=== PATIENT | male | born 1955 | race Caucasian/White ===

== ENCOUNTER 2025-06-04 08:45 | Day surgery (SDC) | payer OTHER, SELFPAY ==
--- NOTE | 2025-06-01 06:10 | EKG_ITS ---
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
[2025-06-01 11:03] VITALS: BMI 24.5
[2025-06-01 12:26] LABS: Collection Type, Urine Clean Catch; Squamous Epithelial Cell,Urine 0 /hpf (0-5)
[2025-06-01 12:38] LABS: Basophils # (Auto) 0.0 Thou/mm3 (0.0-0.2); Basophils % (Auto) 1 % (0-2.5); Eosinophils # (Auto) 0.1 Thou/mm3 (0.0-0.5); Eosinophils % (Auto) 1 % (0-10); Hematocrit 37.6 % (41.0-53.0); Hemoglobin 12.8 g/dL (13.5-16.0); Immature Granulocytes Auto 0.02 Thou/mm3 (0.00-0.00); Lymphocytes # (Auto) 2.3 Thou/mm3 (1.0-4.8); Lymphocytes % (Auto) 31 % (10-50); Mean Corpuscular HGB Conc 34.0 g/dl (31.0-37.0); Mean Corpuscular Hemoglobin 29.9 pg (25.0-35.0); Mean Corpuscular Volume 88 fL (80-100); Monocytes # (Auto) 0.9 Thou/mm3 (0.0-0.8); Monocytes % (Auto) 13 % (0-12); Neutrophils # (Auto) 3.9 Thou/mm3 (1.8-7.7); Neutrophils % (Auto) 54 % (37-80); Nucleated Red Blood Cell # 0.00 Thou/mm3 (0.00-0.00); Nucleated Red Blood Cell % 0 /100 WBC (0); Platelet Count 302 Thou/mm3 (140-440); RDW Standard Deviation 40.9 fL (35.1-43.9); Red Blood Count 4.28 Miln/mm3 (4.50-5.90); White Blood Count 7.2 Thou/mm3 (3.8-10.6)
[2025-06-01 12:45] LABS: Partial Thromboplastin Time 28.5 Seconds (22.0-36.0)
[2025-06-01 12:49] LABS: Alanine Aminotransferase 29 U/L (10-49); Albumin, Serum 4.8 gm/dL (3.4-4.8); Albumin/Globulin Ratio 1.8 (1.2-2.2); Alkaline Phosphatase 79 U/L (46-116); Anion Gap 7 (7-16); Aspartate Amino Transferase 29 U/L (0-34); BUN/Creatinine Ratio 16 Ratio (12-20); Bilirubin,Total 0.7 mg/dL (0.3-1.2); Blood Urea Nitrogen 14 mg/dL (9-23); Calcium 10.0 mg/dL (8.3-10.6); Calcium (Corrected) 10.0 mg/dL (8.5-10.1); Carbon Dioxide 33.3 mMol/L (20.0-31.0); Chloride 102 mMol/L (98-107); Creatinine (Component) 0.9 mg/dL (0.6-1.3); Estimated Creatinine Clearance 81.3 mL/min (>60); Globulin 2.6 gm/dL (2.3-3.5); Glucose 99 mg/dL (74-106); Osmolality,Calculated 283 (275-295); Potassium 4.0 mMol/L (3.4-5.1); Sodium 142 mMol/L (136-145); Total Protein 7.4 gm/dL (5.7-8.2); eGFR > 60 See Note
[2025-06-01 13:32] LABS: Bilirubin,Urine Negative (Negative); Blood,Urine Trace (Negative); Clarity,Urine Clear (Clear/Hazy); Color,Urine Colorless (Lt Yel-Yel); Glucose, Urine Negative (Negative); Ketones,Urine Negative (Negative); Leukocyte Esterase,Urine Negative (Negative); Nitrite,Urine Negative (Negative); PH,Urine 7.0 (5.0-7.0); Protein,Urine Negative (Neg - Trace); RBC,Urine 1 /hpf (0-3); Specific Gravity,Urine 1.008 (1.001-1.035); Urobilinogen,Urine Negative mg/dL (0.0-1.0); WBC,Urine 1 /hpf (0-5)
[2025-06-04] VITALS (7 sets, daily range): BP systolic 131–142; BP diastolic 69–77; PULSE 55–92; RESP 15–19; TEMP 36.2–36.4; O2SAT 97–100
[2025-06-04] MEDS: RINGERS LACTATED 1000 ML 1,000 ML 60 ML IV (09:35)
--- NOTE | 2025-06-04 11:05 | SUR.PREOP ---
Patient expressed gratitude for prayer before their procedure.
--- NOTE | 2025-06-04 14:55 | SUR.PHASEI ---
pt received from OR in recovery bay 8. pt asleep but responds to voice, breathing unlabored on oxymask 6l. v/s stable. pt dressing to abd cdi. report received from Dr. Buckley and Kaylie MARTINEZ.
--- NOTE | 2025-06-04 14:55 | PD.SUROPNT ---
Date of Procedure 06/04/25 Pre Op Diagnosis Incarcerated right inguinal hernia Post Op Diagnosis Same with lipoma of the cord Procedure Repair of incarcerated inguinal hernia on the right side with excision of lipoma of the cord on 06/04/2025 Findings There is a large incarcerated right inguinal hernia there is a significant amount of scar tissue around the hernia sac. There is a lipoma of the cord. After general anesthesia was given was able to reduce the hernia. There was some inflammation around the hernia sac. Procedure Description Patient was examined in the preop area. Site and site were marked. Procedure was discussed with the patient in detail. The risk benefits alternatives were discussed with the patient and informed consent was obtained. The risks include bleeding infection recurrence of the hernia testicular atrophy and anesthesia related risks. The patient was brought to the operating room and placed on the operating table in supine position. General anesthesia was administered in a satisfactory manner. IV antibiotics were given to the patient. Local anesthesia 0.25% Marcaine was used as an adjunct. Curvilinear oblique incision is made in the right groin. This was deepened through the layers of skin subcutaneous tissue and Louis's fascia. The superficial inferior epigastric veins were ligated and divided. Hemostasis was achieved. The hernia protrusion is quite large and extending out to from the external ring. External oblique aponeurosis was cleared and the external ring was defined. The shelving edge of the inguinal ligament was defined externally. A longitudinal incision was made in the external oblique aponeurosis. The inguinal canal was opened. The ilioinguinal nerve was protected. Upper and lower flaps of the external oblique aponeurosis were dissected away from the hernia sac. This was retracted with a self-retaining retractor. The cremaster muscle was incised and the hernia sac was identified. Hernia sac was gently dissected circumferentially at the neck. The spermatic vessels were identified and they were protected. After the sac was from the cord structures it was examined and the sliding nature of the hernia sac was found. The peritoneum was closed with 3-0 Vicryl pursestring suture and the hernia was reduced en elodia. There was tight hernia ring. Large lipoma of the spermatic cord was noted to be extending from the internal ring and this was dissected from the cord structures and was removed after suture ligating the neck. This was sent off as specimen. The posterior wall of the inguinal canal was then examined. The conjoined tendon was defined. The posterior wall was repaired with interrupted 0 Ethibond interrupted sutures. This was approximating the the shelving edge of the inguinal ligament with the conjoined tendon and fascia transversalis. The first suture is passing through the periosteum of the pubic tubercle. The second suture was passing through the Jimmy's ligament. Rest of them passing through the shelving edge of the inguinal ligament, fascia transversalis and conjoined tendon. Internal ring was tightened. Enough space was left around the spermatic cord so as to avoid constriction at the internal ring. After the repair was completed, a releasing incision was made in the internal oblique underneath the external oblique and rectus sheath. Operative field is thoroughly irrigated with saline solution and hemostasis is again achieved. The spermatic cord and ilioinguinal nerve placed back into the inguinal canal. External oblique aponeurosis is approximated by 3-0 PDS continuous suture. Subcutaneous tissues approximated by 3-0 Vicryl interrupted sutures and skin is approximated by 4-0 Monocryl subcuticular stitches. Steri-Strips are applied. Patient tolerated procedure very well. Complications none. Anesthesia GETA Drains None. Implants None. Pathology / specimen Other (Hernia sac and lipoma of the cord) Estimated Blood Loss 5 Condition Stable Disposition PACU Surgeon Daryl Ledezma MD Surgical Staff Operation Date: 06/04/25 11:15 Case Staff Anesthesiologist: Srikanth Buckley RN First Assistant: Shayla Carnes RN supervisor of officials [employer]am medical or surgical instrument maker
--- NOTE | 2025-06-04 15:50 | SUR.PHASEII ---
pt awake and alert, breathing unlabored on room air. v/s stable. pt dressing to abd cdi. pt able to ambualte to wheelchair with steady gait. d/c instructions given with friend Vlad in room, all questions answered. pt d/c via wheelchair with all belongings.
== END 2025-06-04 15:50 | disposition home or self-care (01) ==
PROVIDERS: PCP Family Medicine; Referring Provider Specialist; Visit Provider Specialist
PROC: (CPT 49507; principal; 2025-06-04 11:00)
DX: K40.30 Unilateral inguinal hernia, with obstruction, without gangrene, not specified as recurrent (principal); D17.6 Benign lipomatous neoplasm of spermatic cord; Z01.810 Encounter for preprocedural cardiovascular examination
CPT/HCPCS: 49507; 55520; 36415; 80053; 81001; 85025; 85730; 93005; A4217; A4649; J0131; J0461; J1100; J1580; J1885; J2250; J2405; J2704; J3010; J3490; J7030; J7120